=== PATIENT | female | born 1970 | race Caucasian/White ===

== ENCOUNTER → 2018-06-14 | Day surgery (SDC) | payer BC, OTHER ==
--- NOTE | 2018-06-14 11:27 | RAD REPORT ---
EXAM DESCRIPTION: US - Guided FNA Non Breast - 06/14/2018 11:08 am CLINICAL HISTORY: E04.2 COMPARISON: No comparisons FINDINGS: Preoperative diagnosis: Right thyroid nodule. Post operative diagnosis: Same. Conscious Sedation: None Fluoroscopy time: None Contrast used: None Estimated blood loss: Minimal Specimens:5 x 25 gauge FNA specimens The right neck was prepped and draped in the usual sterile fashion. 1% lidocaine was infiltrated into the subcutaneous tissues for local anesthesia. Real time ultrasound scanning of the right thyroid de monstrated 3 x 2 cm large echogenic nodule. Under ultrasound guidance, using 25 gauge FNA needles, 5 specimens were obtained of this lesion and sent to pathology for evaluation. There were no complicati ons. IMPRESSION: Successful sonographically guided right thyroid nodule FNA procedure.
== END ==
LOC: FNA 09:23
PROVIDERS: ATTEND Otolaryngology
PROC: 0GBH3ZX Excision of Right Thyroid Gland Lobe, Percutaneous Approach, Diagnostic (ICD-10-PCS; principal; 2018-06-14)
PROC: BG44ZZZ Ultrasonography of Thyroid Gland (ICD-10-PCS; 2018-06-14)
DX: E04.2 Nontoxic multinodular goiter (principal)
CPT/HCPCS: 88108; 88161; 88162

== ENCOUNTER 2019-07-19 10:09 | Emergency (ER) | payer BC ==
--- OUTSIDE RECORDS SUMMARY | 2019-07-19 10:11 | XMS REPORT ---
:1970 Author Organization [facility] Address [address] [place] [address] Dr. Larsen. [address] [place] [id number] Care Team Providers Name Role Phone Unavailable Unavailable Unavailable Problems This patient has no known problems. Allergies, Adverse Reactions, Alerts This patient has no known allergies or adverse reactions. Medications This patient has no known medications.
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
[2019-07-19 15:09] VITALS: BP 134/81; TEMP 98.7; O2SAT 100
== END 2019-07-19 11:59 | disposition home or self-care (01) ==
LOC: ER 10:09
DX: S13.8XXA Sprain of joints and ligaments of other parts of neck, initial encounter (principal); V49.40XA Driver injured in collision with unspecified motor vehicles in traffic accident, initial encounter
CPT/HCPCS: 70450; 72125; 99284